=== PATIENT | male | born 1960 ===

== ENCOUNTER → 2016-03-30 | Day surgery (SDC) | payer BC ==
[~2016-03-30] MED LIST: ACETAMINOPHEN/HYDROcodone 325 MG/5 MG TAB ONE; KETOROLAC TROMETHAMINE 30 MG/ML (IVP) VIAL IV PUSH ONE; LACTATED RINGER'S 1000 ML INJ 1,000 ML ONE; MIDAZOLAM HCL 2 MG/2 ML VIAL ONE; MORPHINE SULFATE 4 MG/ML INJ ONE; ONDANSETRON HCL 4 MG/2 ML VIAL IV PUSH ONE; PROPOFOL 200 MG/20 ML AMP IV ONE; TRIAMCINOLONE ACETONIDE 40 MG/ML VIAL ONE; ceFAZolin INJ 1,000 MG VIAL ONE
--- NOTE | 2016-03-30 15:18 | TN ---
cc: BALJIT CARTER DATE OF SURGERY: 03/30/2016 PREOPERATIVE DIAGNOSIS Right knee internal derangement. 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 PROCEDURE Right knee arthroscopic surgery - subtotal medial meniscectomy. SURGEON Belgica Carter MD CURRICULUM DEVELOPMENT COORDINATOR Staff SPECIMEN None. ESTIMATED BLOOD LOSS None. COMPLICATIONS None. ANESTHESIA General. DRAINS None. TOURNIQUET TIME 13 minutes at 250 mmHg. CONDITION Stable. PLAN OF ACTIVITY As per orders. DETAILS OF PROCEDURE The patient was brought into the operating room and had satisfactory general anesthesia by Dr. Jaspreet Hernandez of the Department of Anesthesia. The right knee and lower extremity down to including the toes were prepped and draped in the usual sterile manner. Routine anterolateral and anteromedial portals were made. The arthroscope was introduced into the knee. The knee was inflated with sterile Ringer's lactate solution. Inspection of the patellofemoral compartment revealed the patient to have a mild degree of synovitis. The patient was found to have a mild degree of chondromalacia of the femoral trochlea, minimal chondromalacia of the patella. The lateral compartment showed no evidence of arthritic changes. Normal lateral meniscus. Anterior cruciate ligament was found to be intact with no evidence of any recent or remote injuries. The medial compartment revealed the patient to have a complex tear involving the posterior medial meniscus and also a mild degree of chondromalacia of the medial femoral condyle. A subtotal medial meniscectomy was performed using two different types of meniscal rongeurs and a shaver. Minimal chondroplasty and shave of the articular surface were on the medial femoral condyle. The knee was irrigated with copious amounts of Ringer's lactate solution. The wound itself was dry. The arthroscopic instruments were removed. The knee was injected with 1 cc of Kenalog 40. The tourniquet was deflated. 2-0 nylon suture was used in the skin. Sterile dressings were applied. The patient tolerated the procedure well and arrived in the recovery room in stable and satisfactory condition. MD EKTA Short/MESFIN /2:41 PM /3:05 PM
== END | disposition home or self-care (01) ==
LOC: ESDC 12:32
PROVIDERS: ATTEND Orthopaedic Surgery Orthopaedic Surgery of the Spine
DX: S83.231A Complex tear of medial meniscus, current injury, right knee, initial encounter (principal); M22.41 Chondromalacia patellae, right knee
CPT/HCPCS: 01400; 29881; J0690; J1885; J2250; J2270; J2405; J3010; J3301; J7120